=== PATIENT | male | born 1935 ===

== ENCOUNTER 2017-10-08 02:29 | Inpatient (IN) | payer MEDICARE, MEDICAID ==
[~2017-10-08] VITALS: Ht 177.8 cm; Wt 84.9 kg
[2017-10-08 03:28] LABS: ALANINE AMINOTRANSFERASE 44 U/L (12-78); ANION GAP 10 mmol/L (5-15); CALCIUM 8.5 mg/dL (8.5-10.1); CHLORIDE 103 mmol/L (98-107); CREATININE 2.84 mg/dL (0.7-1.3)
[2017-10-08 03:31] LABS: ALKALINE PHOSPHATASE 127 U/L (45-117); BILIRUBIN,TOTAL 0.5 mg/dL (0.2-1.0); TOTAL PROTEIN 7.2 g/dL (6.4-8.2)
[2017-10-08 03:35] LABS: BASOPHILS # (AUTO) 0.01 x10^3/uL (0-0.1); BASOPHILS % (AUTO) 0 % (0-1); EOSINOPHILS # (AUTO) 0.04 x10^3/uL (0-0.4); EOSINOPHILS % (AUTO) 1 % (1-7); LYMPHOCYTES # (AUTO) 0.87 x10^3/uL (1-3.4); LYMPHOCYTES % (AUTO) 15 % (22-44); MD NO; MEAN CORPUSCULAR HEMOGLOBIN 31.9 pg (27.5-34.5); MEAN CORPUSCULAR VOLUME 93.8 fL (81-97); MEAN PLATELET VOLUME 8.6 fL (7.4-10.4); MONOCYTES # (AUTO) 0.66 x10^3/uL (0.2-0.8); MONOCYTES % (AUTO) 11 % (2-9); NEUTROPHILS # (AUTO) 4.22 x10^3/uL (1.8-6.8); NEUTROPHILS % (AUTO) 73 % (42-75); PLATELET COUNT 250 x10^3/uL (130-400); RED CELL DISTRIBUTION WIDTH 13.8 % (9.4-14.8)
[2017-10-08 04:00] LABS: MICROSCOPIC INDICATED
[2017-10-08 04:01] LABS: CULTURE INDICATED? YES
[2017-10-08] MEDS ORDERED: METF500T4 PO (05:30)
[2017-10-08] MEDS ORDERED: ONDANSETRON 2MG/ML, 2ML IVPush PRN (05:30)
[2017-10-08] MEDS ORDERED: hydrALAzine 20 MG/ML, 1ML IVPush PRN (05:30)
[2017-10-08] MEDS ORDERED: ACETAMINOPHEN 325 MG TABLET PO PRN (05:30)
[2017-10-08] MEDS ORDERED: ONDANSETRON ODT 4 MG PO PRN (05:30)
[2017-10-08 06:15] VITALS: BP 150/84
[2017-10-08] MEDS: INSULIN LISPRO 100 UNITS/ML, PEN SQ-INSULIN SCH ×4 (07:00→20:28)
[2017-10-08] MEDS: CEFTRIAXONE PMX 1GM/50ML 50 ML IV SCH (09:33)
[2017-10-08] MEDS: SODIUM CHLORIDE 0.9% 1,000 ML IV SCH (09:34)
[2017-10-08 09:40] VITALS: BP 133/77
[2017-10-08 15:17] VITALS: BP 104/62
[2017-10-08 20:15] VITALS: BP 113/60
[2017-10-09] MEDS: SODIUM CHLORIDE 0.9% 1,000 ML IV SCH ×2 (01:34→14:56)
[2017-10-09 03:18] VITALS: BP 113/65
[2017-10-09 05:02] LABS: BASOPHILS # (AUTO) 0.03 x10^3/uL (0-0.1); BASOPHILS % (AUTO) 1 % (0-1); EOSINOPHILS # (AUTO) 0.15 x10^3/uL (0-0.4); EOSINOPHILS % (AUTO) 3 % (1-7); LYMPHOCYTES # (AUTO) 1.19 x10^3/uL (1-3.4); LYMPHOCYTES % (AUTO) 23 % (22-44); MD NO; MEAN CORPUSCULAR HGB CONC 34.3 g/dL (33.2-36.2); MEAN CORPUSCULAR VOLUME 93.3 fL (81-97); MEAN PLATELET VOLUME 8.3 fL (7.4-10.4); MONOCYTES # (AUTO) 0.62 x10^3/uL (0.2-0.8); MONOCYTES % (AUTO) 12 % (2-9); NEUTROPHILS # (AUTO) 3.31 x10^3/uL (1.8-6.8); NEUTROPHILS % (AUTO) 62 % (42-75); PLATELET COUNT 249 x10^3/uL (130-400); RED CELL DISTRIBUTION WIDTH 13.8 % (9.4-14.8)
[2017-10-09 05:10] LABS: ANION GAP 9 mmol/L (5-15); CALCIUM 8.3 mg/dL (8.5-10.1); CHLORIDE 111 mmol/L (98-107); CREATININE 2.09 mg/dL (0.7-1.3)
[2017-10-09] MEDS: INSULIN LISPRO 100 UNITS/ML, PEN SQ-INSULIN SCH ×4 (06:25→21:43)
[2017-10-09] MEDS: CEFTRIAXONE PMX 1GM/50ML 50 ML IV SCH (08:17)
[2017-10-09 08:23] VITALS: BP 113/63
[2017-10-09] MEDS ORDERED: HYDROcodone/APAP 5/325 TABLET PO PRN (10:30)
[2017-10-09 13:45] VITALS: BP 119/66
[2017-10-09 20:00] VITALS: BP 101/61
[2017-10-10 01:26] VITALS: BP 126/65
[2017-10-10] MEDS: SODIUM CHLORIDE 0.9% 1,000 ML IV SCH (03:51)
[2017-10-10 05:47] LABS: ANION GAP 7 mmol/L (5-15); CHLORIDE 109 mmol/L (98-107)
[2017-10-10 05:49] LABS: CREATININE 1.29 mg/dL (0.7-1.3)
[2017-10-10 06:43] VITALS: BP 133/79
[2017-10-10] MEDS: INSULIN LISPRO 100 UNITS/ML, PEN SQ-INSULIN SCH ×3 (07:40→15:54)
[2017-10-10] MEDS: CEFTRIAXONE PMX 1GM/50ML 50 ML IV SCH (09:20)
[2017-10-10 12:54] VITALS: BP 139/75
[2017-10-10] MEDS ORDERED: CEFD300C37 PO (17:28)
== END 2017-10-10 19:35 | disposition home or self-care (01) | DRG 682 ==
LOC: ED 02:37 → SUATTDRO 04:58 → EDIP 05:09 → 4NOR 05:40
PROVIDERS: ADMIT Hospitalist; ATTEND Hospitalist
PROC: 0T9B70Z Drainage of Bladder with Drainage Device, Via Natural or Artificial Opening (ICD-10-PCS; principal; 2017-10-08)
DX: N17.9 Acute kidney failure, unspecified (principal); E43 Unspecified severe protein-calorie malnutrition; N13.8 Other obstructive and reflux uropathy; C64.2 Malignant neoplasm of left kidney, except renal pelvis; D63.8 Anemia in other chronic diseases classified elsewhere; I13.10 Hypertensive heart and chronic kidney disease without heart failure, with stage 1 through stage 4 chronic kidney disease, or unspecified chronic kidney disease; K57.90 Diverticulosis of intestine, part unspecified, without perforation or abscess without bleeding; N18.9 Chronic kidney disease, unspecified; E11.9 Type 2 diabetes mellitus without complications; N28.1 Cyst of kidney, acquired; N30.91 Cystitis, unspecified with hematuria; N40.1 Benign prostatic hyperplasia with lower urinary tract symptoms; R33.8 Other retention of urine; Z68.26 Body mass index [BMI] 26.0-26.9, adult
CPT/HCPCS: 36415; 74176; 74178; 80048; 80053; 81001; 82962; 83735; 84100; 85025; 87086; 99285; J0696; J1815; J7030